=== PATIENT | female | born 1955 | race Caucasian/White ===

== ENCOUNTER 2020-10-21 11:25 | Emergency (ER) | payer OTHER ==
[2020-10-21] MEDS ORDERED: MORPHINE 2 MG/ML SYR ONE ×2 (13:19→15:19)
[2020-10-21] MEDS ORDERED: ONDANSETRON 4 MG/2 ML VIAL ONE (13:19)
[2020-10-21] MEDS ORDERED: NA CHLORIDE 0.9% 1,000 ML ONE (13:19)
[2020-10-21] MEDS ORDERED: NA CHLORIDE 0.9% 500 ML ONE (13:19)
[2020-10-21 13:26] LABS: Absolute Lymphocytes (CBC) 1.3 K/uL (0.7-4.9); Basophils % 0.6 % (0-1.3); Hematocrit 47.2 % (36.0-45.0); Lymphocytes % 9.4 % (15.3-44.8); MPV 8.8 fL (7.6-11.3)
[2020-10-21 13:51] LABS: ALT/SGPT 115 U/L (12-78); AST/SGOT 81 U/L (15-37); Albumin 4.1 g/dL (3.4-5.0); Alkaline Phosphatase 73 U/L (45-117); BUN Blood Urea Nitrogen 35 mg/dL (7-18); Bicarbonate 27 mmol/L (21-32); Bilirubin Total 0.9 mg/dL (0.2-1.0); Glucose Level 97 mg/dL (74-106); Potassium 3.7 mmol/L (3.5-5.1); Protein, Total 7.6 g/dL (6.4-8.2); Sodium Level 140 mmol/L (136-145); Troponin (Emerg Dept Use Only) < 0.02 ng/mL (0.0-0.045)
--- NOTE | 2020-10-21 14:12 | RAD REPORT ---
EXAM DESCRIPTION: CT - Soft Tissue Neck W/Contr - 10/21/2020 1:47 pm CLINICAL HISTORY: Neck pain and fever COMPARISON: None. TECHNIQUE: Computed axial tomography of the neck was obtained. 50 cc Isovue 300 was administered in travenously. Coronal and sagittal reconstruction was performed. All CT scans are performed using dose optimization technique as appropriate and may include automated exposure control or mA/KV adjustment according to patient size. FINDINGS: A 5 millimeter low-density areas present within the right lingual tonsil. 6 millimeter low -density areas present within the left lingual tonsil. The remainder of the pharynx, tongue base, larynx and subglottic trachea appear unremarkable 6 centimeter right thyroid nodule. The parotid and submandibular glands are unremarkable No lymphadenopathy is seen The sinuses and mastoids are clear. IMPRESSION: A 6 centimeter right thyroid nodule. Nonemergent thyroid ultrasound recommended 5 millimeter right and 6 millimeter left low-density areas within the lingual tonsils may represent c ysts. Small abscesses are another consideration and should be correlated clinically
[2020-10-21 15:05] LABS: Urine Blood Trace-intact (Negative); Urine Glucose Negative (Negative); Urine Protein Negative (Negative); Urine Specific Gravity 1.015 (1.005-1.030); Urine pH 5.5 (5.0-7.0)
--- NOTE | 2020-10-21 15:20 | EDPHYS ---
Physician Documentation [facility] Name: Michela Sung Age: 65 yrs Sex: Female : 1955 Arrival Date: 10/21/2020 Time: 11:31 Bed 25 Private MD: DAYA Physician Hunter Green HPI: 10/21 12:48 This 65 yrs old Female presents to ER via Ambulatory with complaints of milady Difficulty Swallowing, Decreased Appetite, dehydration. 12:48 The patient presents with sore throat. The patient describes throat pain as constant. milady Onset: The symptoms/episode began/occurred 3 day(s) ago. Severity of symptoms: At their worst the symptoms were moderate, in the emergency department the symptoms are unchanged. Modifying factors: The symptoms are alleviated by nothing, the symptoms are aggravated by foods, swallowing, Patient's oral intake status: limited fluid intake. Associated signs and symptoms: The patient has no apparent associated signs or symptoms. The patient has experienced similar episodes in the past, multiple times. Historical: - Allergies: 12:23 No Known Allergies; iw - Home Meds: 12:23 amlodipine 5 mg tab 1 tab [Active]; pregabalin 75 mg Oral cap 1 cap 3 times per day iw [Active]; - PMHx: 12:23 Trigeminal neuralgia; Hypertensive disorder; iw - PSHx: 12:23 [place] teeth extraction; iw - Immunization history:: Adult Immunizations not up to date, Client reports receiving the [place] \T\ [place] single-dose vaccine. Date received June 2020. - Social history:: Smoking status: Patient reports the use of cigarette tobacco products, smokes one-half pack cigarettes per day, Patient uses alcohol, occasionally. - Family history:: not pertinent. ROS: 12:48 Constitutional: Negative for fever, chills, and weight loss, Eyes: Negative for injury, milady pain, redness, and discharge, Neck: Negative for injury, pain, and swelling, Cardiovascular: Negative for chest pain, palpitations, and edema, Respiratory: Negative for shortness of breath, cough, wheezing, and pleuritic chest pain, Abdomen/GI: Negative for abdominal pain, nausea, vomiting, diarrhea, and constipation, Back: Negative for injury and pain, : Negative for injury, bleeding, discharge, and swelling, MS/Extremity: Negative for injury and deformity, Skin: Negative for injury, rash, and discoloration, Neuro: Negative for headache, weakness, numbness, tingling, and seizure, Psych: Negative for depression, anxiety, suicide ideation, homicidal ideation, and hallucinations, Allergy/Immunology: Negative for hives, rash, and allergies, Endocrine: Negative for neck swelling, polydipsia, polyuria, polyphagia, and marked weight changes, Hematologic/Lymphatic: Negative for swollen nodes, abnormal bleeding, and unusual bruising. 12:48 Neck: Positive for tenderness. Exam: 12:48 Constitutional: This is a well developed, well nourished patient who is awake, alert, milady and in no acute distress. Head/Face: Normocephalic, atraumatic. Eyes: Pupils equal round and reactive to light, extra-ocular motions intact. Lids and lashes normal. Conjunctiva and sclera are non-icteric and not injected. Cornea within normal limits. Periorbital areas with no swelling, redness, or edema. Neck: Trachea midline, no thyromegaly or masses palpated, and no cervical lymphadenopathy. Supple, full range of motion without nuchal rigidity, or vertebral point tenderness. No Meningismus. Chest/axilla: Normal chest wall appearance and motion. Nontender with no deformity. No lesions are appreciated. Cardiovascular: Regular rate and rhythm with a normal S1 and S2. No gallops, murmurs, or rubs. Normal PMI, no JVD. No pulse deficits. Respiratory: Lungs have equal breath sounds bilaterally, clear to auscultation and percussion. No rales, rhonchi or wheezes noted. No increased work of breathing, no retractions or nasal flaring. Abdomen/GI: Soft, non-tender, with normal bowel sounds. No distension or tympany. No guarding or rebound. No evidence of tenderness throughout. Back: No spinal tenderness. No costovertebral tenderness. Full range of motion. Female : Normal external genitalia. Skin: Warm, dry with normal turgor. Normal color with no rashes, no lesions, and no evidence of cellulitis. MS/ Extremity: Pulses equal, no cyanosis. Neurovascular intact. Full, normal range of motion. Neuro: Awake and alert, GCS 15, oriented to person, place, time, and situation. Cranial nerves II-XII grossly intact. Motor strength 5/5 in all extremities. Sensory grossly intact. Cerebellar exam normal. Normal gait. Psych: Awake, alert, with orientation to person, place and time. Behavior, mood, and affect are within normal limits. 12:48 ENT: External ear(s): are unremarkable, no acute changes, Ear canal(s): are normal, Posterior pharynx: Tonsils: are normal in appearance, Uvula: normal, swelling, is not appreciated, erythema, is not appreciated, exudate, is not appreciated, peritonsillar mass, is not appreciated, pooling of secretions, is not appreciated. 13:12 ECG was reviewed by the Attending Physician. [facility] Vital Signs: 12:05 BP 102 / 66; Pulse 129; Resp 18; Temp 98.7(O); Pulse Ox 95% on R/A; Weight 58.51 kg iw (R); Height 5 ft. 7 in. (170.18 cm); Pain 0/10; 14:44 BP 114 / 59; Pulse 58; Resp 15; Pulse Ox 96% ; jl7 12:05 Body Mass Index 20.20 (58.51 kg, 170.18 cm) iw MDM: 12:31 Patient medically screened. [facility] 12:50 Differential diagnosis: peritonsillar abscess pharyngitis, retropharyngeal abcess milady tonsillitis, upper respiratory infection, uvulitis. Data reviewed: vital signs, nurses notes, lab test result(s), EKG, radiologic studies, CT scan. Data interpreted: nurse monitoring: rate is 129 beats/min, rhythm is regular, Pulse oximetry: on room air is 95 %. Test interpretation: by ED physician or midlevel provider: ECG, plain radiologic studies. Counseling: I had a detailed discussion with the patient and/or guardian regarding: the historical points, exam findings, and any diagnostic results supporting the discharge/admit diagnosis, lab results, radiology results, the need for outpatient follow up. 10/21 12:47 Order name: CBC with Diff [facility] 10/21 12:47 Order name: Comprehensive Metabolic Panel [facility] 10/21 12:47 Order name: Troponin (emerg Dept Use Only) [facility] 10/21 12:48 Order name: CBC with Automated Diff; Complete Time: 14:43 EDMS 10/21 12:48 Order name: Comprehensive Metabolic Panel; Complete Time: 14:43 EDMS 10/21 12:48 Order name: Troponin (Emerg Dept Use Only); Complete Time: 14:43 [facility] 10/21 12:47 Order name: CT Soft Tissue Neck W/contr; Complete Time: 14:43 [facility] 10/21 14:44 Order name: SARS-COV-2 RT PCR; Complete Time: 14:44 [facility] 10/21 15:04 Order name: Urine Dipstick-Ancillary; Complete Time: 15:16 [facility] 10/21 12:47 Order name: Urine Dipstick-Ancillary (obtain specimen); Complete Time: 15:12 [facility] 10/21 12:47 Order name: EKG; Complete Time: 12:48 [facility] 10/21 12:47 Order name: EKG - Nurse/Tech; Complete Time: 13:17 [facility] EC:12 Rate is 58 beats/min. Rhythm is regular. QRS [place] is Normal. PA interval is normal. QRS milady interval is normal. QT interval is normal. No Q waves. T waves are Normal. T waves are Inverted in leads V3, V4, V5, V6. ST Segment is depressed in leads II, III, aVF. Clinical impression: NSR w/ Non-specific ST/T Changes. Reviewed by me. Administered Medications: 13:05 Drug: NS 0.9% 1000 ml Route: IV; Rate: 1 bolus; Site: left antecubital; iw 14:10 Follow up: Response: No adverse reaction; IV Status: Completed infusion; IV Intake: jl7 1000ml 13:05 Drug: NS 0.9% 500 ml Route: IV; Rate: bolus; Site: left antecubital; iw 13:30 Follow up: IV Status: Completed infusion; IV Intake: 500ml jl7 13:05 Drug: morphine 2 mg Route: IVP; Site: left antecubital; iw 13:30 Follow up: Response: No adverse reaction; Pain is decreased jl7 13:05 Drug: Zofran (Ondansetron) 4 mg Route: IVP; Site: left antecubital; iw 14:45 Follow up: Response: No adverse reaction jl7 14:59 Drug: morphine 2 mg Route: IVP; Site: left antecubital; jl7 15:10 Follow up: Response: No adverse reaction; Pain is decreased jl7 15:30 Drug: Decadron - Dexamethasone 10 mg Route: IVP; Site: left antecubital; jl7 16:09 Follow up: Response: No adverse reaction jl7 15:30 Drug: Clindamycin 900 mg Route: IVPB; Infused Over: 30 mins; Site: left antecubital; jl7 16:09 Follow up: Response: No adverse reaction; IV Status: Completed infusion jl7 Disposition Summary: 10/21/20 15:19 Discharge Ordered Location: Home [facility] Problem: new milady Symptoms: have improved milady Condition: Stable milady Diagnosis - Hypertrophy of tonsils - 5 mm right and 6mm left tonsillar cyst milady - Trigeminal neuralgia milady Followup: milady - With: Private Physician - When: 1 - 2 days - Reason: Recheck today's complaints, Continuance of care, Re-evaluation by your physician Followup: milady - With: Amber Worrell MD - When: 2 - 3 days - Reason: Recheck today's complaints, Re-evaluation by your physician Discharge Instructions: - Discharge Summary Sheet milady - Tonsillitis milady - Trigeminal Neuralgia milady Forms: - Medication Reconciliation Form [facility] - Thank You Letter [facility] - Antibiotic Education [facility] - Prescription Opioid Use [facility] Prescriptions: - dexamethasone 2 mg Oral tablet - take 1 tablet by ORAL route 3 times per day; 9 tablet; Refills: 0, Product [facility] Selection Permitted - Clindamycin HCl 300 mg Oral Capsule - take 1 capsule by ORAL route every 6 hours for 7 days; 28 capsule; Refills: 0, [facility] Product Selection Permitted Signatures: Dispatcher [employer] Hunter Beltran MD MD cha Williams, Irene, RN Richard Mendosa RN RN jl7 Corrections: (The following items were deleted from the chart) 13:49 13:19 CORONAVIRUS+MR.LAB.BRZ ordered. EDAR EDMS
--- NOTE | 2020-10-21 15:20 | ER ---
Nurse's Notes [facility] Name: Michela Sung Age: 65 yrs Sex: Female : 1955 Arrival Date: 10/21/2020 Time: 11:31 Bed 25 Private MD: Diagnosis: Hypertrophy of tonsils-5 mm right and 6mm left tonsillar cyst;Trigeminal neuralgia Presentation: 10/21 12:05 Chief complaint: Patient states: Trigeminal neuralgia flair up x 8 days. Pt stated, " I iw havent had a flair up in four years and normally I take Carbamazepine for the flair up. I took it and became very loopy. Marci started taking amlodipine since then and I looked it up and it had a red alert. I called my PCP and he switched me to something else and it was way too much so then he switched it again and it did nothing. I get really bad throat spasms and cant swallow, I havent had any water in 4 days.". Coronavirus screen: Client denies travel out of the [place] in the last 14 days. At this time, unable to obtain information related to travel outside the [place] At this time, the client does not indicate any symptoms associated with coronavirus-19. Ebola Screen: Patient negative for fever greater than or equal to 101.5 degrees Fahrenheit, and additional compatible Ebola Virus Disease symptoms Patient denies exposure to infectious person. Patient denies travel to an Ebola-affected area in the 21 days before illness onset. Initial Sepsis Screen: Does the patient meet any 2 criteria? No. Patient's initial sepsis screen is negative. Does the patient have a suspected source of infection? No. Patient's initial sepsis screen is negative. Risk Assessment: Do you want to hurt yourself or someone else? Patient reports no desire to harm self or others. Onset of symptoms was October 13, 2020. 12:05 Method Of Arrival: Ambulatory iw 12:05 Acuity: KATY 3 iw Triage Assessment: 12:23 General: Appears in no apparent distress. Behavior is calm, cooperative, appropriate iw for age, quiet. Pain: Complains of pain in neck Pain currently is 0 out of 10 on a pain scale. at worst was 10 out of 10 on a pain scale. level that patient reports is acceptable is 3 out of 10 on a pain scale. Quality of pain is described as stabbing, Electrical Pain began 8 days ago. EENT: Reports pain in Throat when swallowing Pain is 10 out of 10 on a pain scale. since 8 days. Historical: - Allergies: 12: No Known Allergies; iw - Home Meds: 12: amlodipine 5 mg tab 1 tab [Active]; pregabalin 75 mg Oral cap 1 cap 3 times per day iw [Active]; - PMHx: 12: Trigeminal neuralgia; Hypertensive disorder; iw - PSHx: 12: [place] teeth extraction; iw - Immunization history:: Adult Immunizations not up to date, Client reports receiving the [place] \\T\\ [place] single-dose vaccine. Date received June 2020. - Social history:: Smoking status: Patient reports the use of cigarette tobacco products, smokes one-half pack cigarettes per day, Patient uses alcohol, occasionally. - Family history:: not pertinent. Screenin:27 Abuse screen: Denies threats or abuse. Denies injuries from another. Nutritional iw screening: Difficulty chewing/swallowing? Yes Had unintentional weight loss of 10 pounds or more. Tuberculosis screening: No symptoms or risk factors identified. Fall Risk None identified. Assessment: 13:00 General: Appears in no apparent distress. uncomfortable, Behavior is calm, cooperative, jl7 appropriate for age. Pain: Complains of pain in neck Pain currently is 0 out of 10 on a pain scale. at worst was 10 out of 10 on a pain scale. Neuro: Level of Consciousness is awake, alert, obeys commands, Oriented to person, place, time, situation. Cardiovascular: Patient's skin is warm and dry. Respiratory: Airway is patent Respiratory effort is even, unlabored, Respiratory pattern is regular, symmetrical. Derm: Skin is pink, warm \\T\\ dry. 14:00 Reassessment: Patient appears in no apparent distress at this time. No changes from jl7 previously documented assessment. Patient and/or family updated on plan of care and expected duration. Pain level reassessed. Patient is alert, oriented x 3, equal unlabored respirations, skin warm/dry/pink. 15:00 Reassessment: Patient appears in no apparent distress at this time. No changes from jl7 previously documented assessment. Patient and/or family updated on plan of care and expected duration. Pain level reassessed. Patient is alert, oriented x 3, equal unlabored respirations, skin warm/dry/pink. 15:30 Reassessment: Pt will be discharged once medication is done infusing. jl7 Vital Signs: 12:05 BP 102 / 66; Pulse 129; Resp 18; Temp 98.7(O); Pulse Ox 95% on R/A; Weight 58.51 kg iw (R); Height 5 ft. 7 in. (170.18 cm); Pain 0/10; 14:44 BP 114 / 59; Pulse 58; Resp 15; Pulse Ox 96% ; jl7 12:05 Body Mass Index 20.20 (58.51 kg, 170.18 cm) iw ED Course: 11:31 Patient arrived in ED. am2 12:23 Triage completed. iw 12:23 Arm band placed on left wrist. iw 12:27 Patient has correct armband on for positive identification. iw 12:27 No provider procedures requiring assistance completed. iw 12:30 Hunter Green MD is Attending Physician. milady 12:49 Richard Jones RN is Primary Nurse. jl7 13:00 Initial lab(s) drawn, by ne, sent to lab. Inserted saline lock: 20 gauge in left jl7 antecubital area, using aseptic technique. Blood collected. 13:00 EKG done, by ED staff, reviewed by Hunter Green MD. jl7 13:30 COVID swab sent to lab. jl7 13:48 CT Soft Tissue Neck W/contr In Process Unspecified. EDMS 15:17 Amber Worrell MD is Referral Physician. milady 16:10 IV discontinued, intact, bleeding controlled, No redness/swelling at site. Pressure jl7 dressing applied. Administered Medications: 13:05 Drug: NS 0.9% 1000 ml Route: IV; Rate: 1 bolus; Site: left antecubital; iw 14:10 Follow up: Response: No adverse reaction; IV Status: Completed infusion; IV Intake: jl7 1000ml 13:05 Drug: NS 0.9% 500 ml Route: IV; Rate: bolus; Site: left antecubital; iw 13:30 Follow up: IV Status: Completed infusion; IV Intake: 500ml jl7 13:05 Drug: morphine 2 mg Route: IVP; Site: left antecubital; iw 13:30 Follow up: Response: No adverse reaction; Pain is decreased jl7 13:05 Drug: Zofran (Ondansetron) 4 mg Route: IVP; Site: left antecubital; iw 14:45 Follow up: Response: No adverse reaction jl7 14:59 Drug: morphine 2 mg Route: IVP; Site: left antecubital; jl7 15:10 Follow up: Response: No adverse reaction; Pain is decreased jl7 15:30 Drug: Decadron - Dexamethasone 10 mg Route: IVP; Site: left antecubital; jl7 16:09 Follow up: Response: No adverse reaction jl7 15:30 Drug: Clindamycin 900 mg Route: IVPB; Infused Over: 30 mins; Site: left antecubital; jl7 16:09 Follow up: Response: No adverse reaction; IV Status: Completed infusion jl7 Intake: 13:30 IV: 500ml; Total: 500ml. jl7 14:10 IV: 1000ml; Total: 1500ml. jl7 Outcome: 15:19 Discharge ordered by MD. henning 16:10 Discharged to home ambulatory. jl7 16:10 Condition: stable 16:10 Discharge instructions given to patient, Instructed on discharge instructions, follow up and referral plans. medication usage, Demonstrated understanding of instructions, follow-up care, medications, Prescriptions given X 2. 16:10 Patient left the ED. jl7 Signatures: Dispatcher [employer] Hunter Beltran MD MD cha Williams, Irene, RN Richard Mendosa RN RN jl7 Moreno, Amanda am2
[2020-10-21] MEDS ORDERED: dexAMETHasone 10 MG/ML VIAL ONE (15:49)
[2020-10-21] MEDS ORDERED: CLINDAMYCIN 900MG/D5W 900 MG/50 ML IVPB IV ONE (15:49)
[2020-10-21 16:32] VITALS: TEMP 98.7
[2020-10-21 16:33] VITALS: BP 114/59; O2SAT 96
--- NOTE | 2020-10-22 10:42 | EKG ---
Test Date: 2020-10-21 Test Time: 13:03:47 Decal Maker: JACINTA MEASUREMENT RESULTS: Intervals: Rate: 58 ME: 120 QRSD: 94 QT: 446 QTc: 437 [place]: P: 63 ME: 120 QRS: 57 T: 50 INTERPRETIVE STATEMENTS: Sinus bradycardia Incomplete right bundle branch block ST & T wave abnormality, consider anterior ischemia Abnormal ECG No previous ECG available for comparison Electronically Signed On 10-22-20 10:39:55 CDT by Michael Beckman
== END 2020-10-21 16:10 | disposition home or self-care (01) ==
LOC: ER 11:25
DX: J35.8 Other chronic diseases of tonsils and adenoids (principal); G50.0 Trigeminal neuralgia; I10 Essential (primary) hypertension; F17.210 Nicotine dependence, cigarettes, uncomplicated; Z20.822 Contact with and (suspected) exposure to COVID-19
CPT/HCPCS: 96365; 96361; 93005; 85025; 36415; 82565; 81003; 84484; 80053; 70491; 96375; 99284; U0003; Q9967; J1100; J2270 ×2; J7040; J7030; J2405